=== PATIENT | male | born 1975 | race Caucasian/White ===

== ENCOUNTER 2022-12-29 09:11 | Outpatient (REF) | payer BC, SELFPAY ==
[2022-12-29 09:25] LABS: MANUAL DIFF FLAG NO
[2022-12-29 10:41] LABS: Basophils Absolute Auto 0.1 X10*3/uL (0.0-0.2); Basophils Percent Auto 1.5 % (0-2); Eosinophils Absolute Auto 0.3 X10*3/uL (0.0-0.4); Eosinophils Percent Auto 4.2 % (0-4); Hematocrit 45.9 % (42.0-52.0); Imm Gran Abs Auto 0.03 X10*3/uL (0.00-0.03); Imm Gran Pct Auto 0.4 % (0.0-0.4); Lymphocytes Absolute Auto 2.2 X10*3/uL (1.2-4.9); Lymphocytes Percent Auto 30.1 % (20-40); Mean Corpuscular HGB Conc 32.7 g/dl (31.0-36.0); Mean Corpuscular Hemoglobin 28.1 pg (27.0-33.0); Mean Platelet Volume 10.7 fL (9.4-12.4); Monocytes Absolute Auto 0.4 X10*3/uL (0.1-1.2); Monocytes Percent Auto 5.6 % (2-11); Neutrophils Absolute Auto 4.2 x10*3/uL (2.0-8.3); Neutrophils Percent Auto 58.2 % (45-73); Platelet Count 292 X10*3/uL (160-400); Red Blood Count 5.34 X10*6/uL (4.60-5.80); Red Cell Distribution Width 13.8 % (11.0-16.0); White Blood Count 7.1 X10*3/uL (4.8-10.8)
[2022-12-29 11:00] LABS: Appearance Urine Clear; Color Urine Yellow; Glucose Urine UA Negative (Negative); Leukocyte Esterase Urine Negative (Negative); Nitrite Urine Negative (Negative); PH 5.5 (5.0-9.0); Specific Gravity - Urine >= 1.030 (1.005-1.025); UMIC TRIGGER UACC YES; Urine Blood Moderate (2+) (Negative); Urine Ketones Trace mg/dL (Negative); Urine Protein 30 (1+) mg/dL (Neg-Trace)
[2022-12-29 11:03] LABS: Bacteria Urine None Seen (None Seen); Squamous Epithelial Cell Urine 0-2 /HPF (0-2); WBC Urine 0-5 /HPF (0-5)
[2022-12-29 11:17] LABS: Anion Gap 15 (12-20)
[2022-12-29 14:13] LABS: Alanine Aminotransferase 28 U/L (0-40); Albumin Level 4.1 g/dL (3.5-5.0); Alkaline Phosphatase 65 U/L (39-117); Aspartate Amino Transferase 21 U/L (5-37); Bilirubin Total 0.6 mg/dL (0.0-1.0); Blood Urea Nitrogen 15 mg/dL (9-16); Calcium 9.3 mg/dL (8.4-10.2); Carbon Dioxide 24 mmol/L (22-29); Chloride 109 mmol/L (96-108); Cholesterol 157 mg/dL; Estimated Glomerular Filt Rate > 60; Glucose Fasting 90 mg/dL (60-99); HDL Cholesterol 27 mg/dL; LDL Cholesterol Calculated 106 mg/dl; Sodium 144 mmol/L (135-145); TSH reflex Free T4 0.56 uIU/mL (0.32-4.0); Total Protein 7.5 g/dL (6.5-8.0); Triglycerides 124 mg/dL; Vitamin D 25-OH Total 29.1 ng/mL (>30)
[2022-12-29 20:06] LABS: Prostate Specific Antigen Scr 1.85 ng/mL (<0.05-4.0)
== END 2022-12-29 09:12 | disposition home or self-care (01) ==
LOC: HO.LAB 09:11
PROVIDERS: PCP Internal Medicine; Visit Provider Internal Medicine
DX: Z00.00 Encounter for general adult medical examination without abnormal findings (principal); E55.9 Vitamin D deficiency, unspecified; E78.00 Pure hypercholesterolemia, unspecified; G43.909 Migraine, unspecified, not intractable, without status migrainosus; E66.9 Obesity, unspecified; J30.9 Allergic rhinitis, unspecified; R30.0 Dysuria; Z12.5 Encounter for screening for malignant neoplasm of prostate
CPT/HCPCS: 36415; 80053; 80061; 81001; 81003; 82306; 84153; 84443; 85025

== ENCOUNTER 2023-03-20 09:53 | Outpatient (AMB) | payer BC, SELFPAY ==
[2023-03-20 10:11] VITALS: BP 146/82; PULSE 76; BMI 37.7
--- NOTE | 2023-03-20 10:11 | MHC.OFFVIS ---
Intake Vital Signs 03/20/23 10:11 Height 5 ft 10 in Weight 263 lb BMI 37.7 BP 146/82 H Blood Pressure Location Lt brachial Position Sitting Pulse 76 Intake Visit Reasons: Colonoscopy Screening Intake Note: Patient new consult for 1st pre colonoscopy screening. Patient denies any GI issues. 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 Accompanied by: Self / Same As Patient Allergies Penicillins Allergy (Severe, Verified 03/20/23 10:11) Anaphylaxis amoxicillin [AMOXICILLIN] Allergy (Mild, Verified 03/20/23 10:11) RASH Iodinated Contrast Media [IV CONTRAST] Allergy (Unknown, Verified 03/20/23 10:11) UNKNOWN Medication List - Last Reconciled 03/20/23 by Marlene Silva PA-C loratadine 10 mg PO DAILY PRN HPI HPI Comments History of Present Illness Details A 47 y/o male referred for index screening colonoscopy- no GI concerns SOB- with covid- with seem to linger, however is improved Appetite very good Normal bowel pattern No resp/ cardiac issues No nausea, vomiting, hematemesis, hematochezia fever chills PFSH Medical History Allergic rhinitis Migraine Surgical History S/p bilateral myringotomy with tube placement Family History Maternal Grandmother Diabetes Mother Hypertension Social History (Updated 03/20/23 @ 13:12 by Marlene Silva PA-C) Household Members Other:: [facility] Housing: House Patient Tobacco Use Status: Former Tobacco user Quit Date: 2015 e-Cigarette/Vaping Use: Never Used Second Hand Smoke Exposure: No service: No Current occupational status: employed Current occupational exposures/hazards: No Cognitive needs: No Hearing needs: No Vision needs: No Review of Systems Const All systems reviewed & are unremarkable except as noted in HPI and below Card Denies chest pain and Denies dyspnea Resp Denies dyspnea GI Denies abdominal pain, Denies change in bowel habits, Denies heartburn, Denies diarrhea, Denies nausea and Denies vomiting Physical Exam Vital Signs: Last Vital Signs Pulse 76 03/20/23 10:11 BP 146/82 H 03/20/23 10:11 BMI result Body Mass Index 37.7 Const General: cooperative, healthy appearing, comfortable and no acute distress Orientation/consciousness: patient oriented x3 Limitations: no limitations Eyes Sclerae: sclerae normal Resp Effort & Inspection: normal respiratory effort and able to speak in complete sentences Auscultation: clear to auscultation bilaterally, no rales, no rhonchi and no wheezes Cardio Rate: regular rate Rhythm: regular rhythm Heart sounds: S1 normal heart sound present and S2 normal heart sound present GI Palpation (GI): Soft to palpation and nontender Auscultation: normal bowel sounds Skin General skin exam: no rashes or lesions noted Neuro General: patient oriented x3 Extrem General: Yes full ROM Psych Appearance: grossly normal and well kempt Mental Status: mental status grossly normal Speech and movement: Normal speech and movement present and Clear speech present Affect: normal affect Attitude: cooperative Thought process: Normal thought process present Thought content: Normal thought content present Insight: Good insight present (Psych) Judgement: Good judgement present (Psych) Assessment & Plan Assessment & Plan (1) Colon cancer screening: Code(s): Z12.11 - Encounter for screening for malignant neoplasm of colon Plan: Index screening colonoscopy MiraLax Gatorade prep Discussed procedure, rare risks need for escorted Plan Index screening colonoscopy MiraLax Gatorade prep Orders: Orders Colonoscopy - GI Use Only Today Z12.11 - Encounter for screening for malignant neoplasm of colon Medications: New bisacodyl (Dulcolax (bisacodyl)) Day before procedure, prep day Take 4 tablets by mouth upon awakening followed by large glass of water 20 mg (4 x 5 mg) PO ONCE 4 tabs 0RF colonoscopy prep 1 day Z12.11 - Encounter for screening for malignant neoplasm of colon polyethylene glycol 3350 (Miralax) Take as directed by mouth the day before your procedure. 238 grams PO ONCE PRN 238 grams 0RF laxative effect 1 day Patient Instructions: A 47-year-old male referred index screening colonoscopy no GI complaints, no family history GI cancer index screening colonoscopy MG prep- info given Opportunity for questions answered to satisfaction Encouraged to call questions or concerns Coding Level of Care Code New Pt Level 3 (38731) Diagnoses Colon cancer screening Z12.11 Time Spent (min) 30
== END 2023-03-20 10:31 | disposition home or self-care (01) ==
PROVIDERS: PCP Internal Medicine; Visit Provider Physician Assistant
DX: Z12.11 Encounter for screening for malignant neoplasm of colon (principal); Z01.818 Encounter for other preprocedural examination
CPT/HCPCS: S0285

== ENCOUNTER → 2023-03-20 09:53 | Outpatient (BNVA) | payer BC, SELFPAY | PROVIDERS: PCP Internal Medicine; Visit Provider Physician Assistant ==

== ENCOUNTER 2023-05-07 12:48 | Outpatient (AMB) | payer BC, SELFPAY ==
[2023-05-07 13:01] VITALS: BP 138/86; PULSE 86; O2SAT 98; BMI 38.2
--- NOTE | 2023-05-07 13:01 | A.OFFPC_ITS ---
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 Accompanied by: Self / Same As Patient Allergies Penicillins Allergy (Severe, Verified 05/07/23 13:36) Anaphylaxis amoxicillin [AMOXICILLIN] Allergy (Mild, Verified 05/07/23 13:36) RASH Iodinated Contrast Media [IV CONTRAST] Allergy (Unknown, Verified 05/07/23 13:36) UNKNOWN Medication List - Last Reconciled 05/07/23 by Anibal Santana MD bisacodyl (Dulcolax (bisacodyl)) 20 mg (4 x 5 mg) PO ONCE 1 day loratadine 10 mg PO DAILY PRN polyethylene glycol 3350 (Miralax) 238 grams PO ONCE PRN 1 day Tobacco use date assessed: 05/07/23 Dental Screening Dental Screen Date: 05/07/23 Did you have a dental visit in the last 12 months?: No Did you have a dental problem in the last 6 months where you did not have access to dental care?: No Was dental information given to patient?: No HPI F/U On Rash On Face HPI Details Patient comes in today complaining of breaking out in recurrent pruritic scaling rash over his scalp, behind his eyes and more recently over his lower back at the intergluteal cleft Notes that the itching seems to get worse at nighttime He denies any history of recent travel and has no new pets at home He also denies eating or drinking anything unusual lately and has not changed any soap, detergent or skin care products recently States that he has tried using some OTC treatments like Selsun Blue and a few other options recently with no relief He denies any fever or recent cough/cold symptoms but has been experiencing on and off headaches lately Denies any chest pains, no SOB No nausea/vomiting, no abdominal pain Denies any acute urinary symptoms Would also like to know how his labs done a few months ago came out [facility] Medical History (Updated 05/07/23 @ 14:03 by Anibal Santana MD) Vitamin D deficiency Allergic rhinitis Migraine Surgical History S/p bilateral myringotomy with tube placement Family History Maternal Grandmother Diabetes Mother Hypertension Social History Household Members Other:: fiancee Housing: House Patient Tobacco Use Status: Former Tobacco user Quit Date: 2015 e-Cigarette/Vaping Use: Never Used Second Hand Smoke Exposure: No service: No Current occupational status: employed Current occupational exposures/hazards: No Cognitive needs: No Hearing needs: No Vision needs: No Questionnaire PHQ-9 Over the last 2 weeks, how often have you been bothered by any of the following problems? 1. Little interest or pleasure in doing things: not at all 2. Feeling down, depressed, or hopeless: not at all 3. Trouble falling or staying asleep, or sleeping too much: not at all 4. Feeling tired or having little energy: not at all 5. Poor appetite or overeating: not at all 6. Feeling bad about yourself - or that you are a failure or have let yourself or your family down: not at all 7. Trouble concentrating on things, such as reading the newspaper or watching television: not at all 8. Moving or speaking so slowly that other people could have noticed. Or the opposite - being so fidgety or restless that you have been moving around a lot more than usual: not at all 9. Thoughts that you would be better off or of hurting yourself in some way: not at all Total score: 0 Depression Screening Interpretation: Negative Depression Screening Done: Yes 37428 - PHQ-9 Billing: Yes Source: Developed by Drs. Alfonso Frias, Delmy Jean, Socrates Mclean and colleagues, with an educational terence from [employer]. Thrive Questionnaire Date Thrive assessed: 05/07/23 I am a: Patient What is your living situation today?: I have a steady place to live Within the past 12 months, did the food you bought not last and you didn't have the money to get more?: Never true Within the past 12 months, did you worry whether your food would run out before you got money to buy more?: Never true Do you have trouble paying for medicines?: No Do you have trouble getting transportation to medical appointments?: No Do you have trouble paying your heating and electricity bill?: No Do you have trouble taking care of your child, family member or friend?: No Do you have trouble with day-to-day activities such as bathing, preparing meals, shopping, managing finances, etc.?: No Are you currently unemployed and looking for a job?: No Are you interested in more education?: No Please select the resources that you would like help with: None Currently or been in a relationship where the following occur: no concerns reported AUDIT C Alcohol Use Questionnaire (AUDIT-C) 1. How often do you have a drink containing alcohol?: Monthly or less 3. How often do you have six or more drinks on one occasion?: Never Total Score: 1 Score Reviewed/Action Taken: Yes HUMBLE-7 AMB Questionnaire HUMBLE-7 Date HUMBLE - 7 assessed: 05/07/23 Feeling nervous, anxious, or on edge: 0 = Not at all Not being able to stop or control worryin = Not at all Worrying too much about different things: 0 = Not at all Trouble relaxin = Not at all Being so restless that it is hard to sit still: 0 = Not at all Becoming easily annoyed or irritable: 0 = Not at all Feeling afraid as if something awful might happen: 0 = Not at all Total HUMBLE-7 score (0-4 normal; 5-9 mild; 10-14 moderate; 15-21 severe): 0 Source: Developed by Drs. Alfonso Frias, Delmy Jean, Socrates Mclean and colleagues, with an educational terence from [employer]. Review of Systems Const Denies chills, Denies fatigue, Denies fever(s) and Reports headache(s) (on and off lately - (+) Hx of migraine) ENT Denies dysphagia, Denies dizziness, Denies otalgia, Reports headache(s) (on and off lately - (+) Hx of migraine), Denies neck pain, Denies odynophagia and Denies sore throat Card Denies chest pain, Denies palpitations and Denies dyspnea Resp Denies cough and Denies dyspnea GI Denies abdominal pain, Denies constipation, Denies dysphagia, Denies heartburn, Denies diarrhea, Denies nausea, Denies odynophagia and Denies vomiting Denies hematuria, Denies dysuria, Denies nocturia and Denies urinary frequency Musc Denies back pain and Denies neck pain Skin/Breast Reports rash ((+) recurrent pruritic rash - see HPI) Neuro Denies dizziness and Reports headache(s) (on and off lately - (+) Hx of migraine) Endo Denies fatigue and Denies palpitations Physical exam (Primary Care) Vital Signs: Last Vital Signs Pulse 86 05/07/23 13:01 BP 138/86 05/07/23 13:01 Pulse Ox 98 05/07/23 13:01 Oxygen Delivery Method Room Air 05/07/23 13:01 BMI result Body Mass Index 38.2 Tobacco/Smoking Status: Tobacco use Status Tobacco use date assessed 05/07/23 05/07/23 13:06 Patient Tobacco Use Status Former Tobacco user 05/07/23 13:06 e-Cigarette/Vaping Use Never Used 05/07/23 13:06 PHQ-9: PHQ-9 Score PHQ-9: Total score 0 05/07/23 13:06 Depression Screening Interpretation: Negative Thrive Assessment: Date of Thrive Assessment Date Thrive assessed 05/07/23 05/07/23 13:06 Currently or been in a relationship where the following occur: no concerns reported Const General: no acute distress and alert Neck Neck: Yes no lymphadenopathy and Yes supple Resp Auscultation: clear to auscultation bilaterally, no rales and no wheezes Cardio Rate: regular rate Rhythm: regular rhythm Heart sounds: no murmurs GI Palpation (GI): Soft to palpation and nontender Auscultation: normal bowel sounds General: Yes no CVA tenderness Back/Spine/Pelvis Back: no CVA tenderness Skin Other: (+) scattered scaling pruritic erythematous rash over the scalp, behind the ears and at the opening of the right ear canal, as well as at the intergluteal cleft Extrem General: Yes no clubbing, cyanosis or edema Results Reviewed Results Reviewed: Laboratory Tests 12/29/22 09:25 WBC 7.1 Hgb 15.0 Hct 45.9 Plt Count 292 Sodium 144 Potassium 4.0 Creatinine 1.07 Estimated GFR > 60 Fasting Glucose 90 Calcium 9.3 AST 21 ALT 28 Triglycerides 124 Cholesterol 157 LDL Cholesterol, Calc 106 HDL Cholesterol 27 PSA Screen 1.85 25-OH Vitamin D Total 29.1 TSH 0.56 Ur Specific [place] >= 1.030 H Urine Protein 30 (1+) H Urine Glucose (UA) Negative Urine Blood Moderate (2+) H Urine Nitrite Negative Ur Leukocyte Esterase Negative Hyaline Casts 3-5 Assessment and Plan Assessment & Plan (1) Migraine: Code(s): G43.909 - Migraine, unspecified, not intractable, without status migrainosus Qualifiers: Migraine type: unspecified Status migrainosus presence: without status migrainosus Intractability: not intractable Qualified Code(s): G43.909 - Migraine, unspecified, not intractable, without status migrainosus Plan: Reinforced avoidance of migraine triggers Patient states that he just takes some OTC meds as needed when his headaches occur, more often in the spring and fall as allergies tend to trigger his headaches (2) Pruritic rash: Code(s): L28.2 - Other prurigo Plan: Unknown etiology Will start him for now on Triamcinolone 0.5% cream BID PRN Will refer him to dermatology for further evaluation and management (3) Benign microscopic hematuria: Code(s): R31.1 - Benign essential microscopic hematuria Plan: Results of his labs done back in December 2022 reviewed and discussed with patient - advised that his labs were mostly within normal limits except for (+) hematuria, which was also seen on urinalysis he did back in 2019 Patient states that he was never worked up for this in the past as far as he can remember because he does not recall that anyone ever mentioned to him about having blood in his urine An abdominal and pelvic CT done back in 2019 revealed only the presence of a tiny exophytic cyst over the right kidney Will send him for urine cytology and for renal and bladder US SANTIAGO for further evaluation (4) Allergic rhinitis: Code(s): J30.9 - Allergic rhinitis, unspecified Qualifiers: Allergic rhinitis trigger: unspecified Allergic rhinitis seasonality: unspecified Qualified Code(s): J30.9 - Allergic rhinitis, unspecified Plan: Continue OTC Loratadine 10 mg QD PRN (5) Vitamin D deficiency: Code(s): E55.9 - Vitamin D deficiency, unspecified Plan: Advised that his Vitamin D level was slightly low on his recent labs Have recommended that he start taking some OTC Vitamin D3 1000 units QD (6) Obesity (BMI 30-39.9): Code(s): E66.9 - Obesity, unspecified Plan: Reinforced diet/exercise as tolerated/lose weight Plan Follow up in 4 months Orders: Orders US bladder Today R31.9 - Hematuria, unspecified Urine Cytology Today R31.9 - Hematuria, unspecified US renal BI Today R31.9 - Hematuria, unspecified Referrals Dermatology Referral L28.2 - Other prurigo Medications: New triamcinolone acetonide 0.5% 1 appl topical BID PRN 30 grams 2RF rash Coding Level of Care Code Est Pt Level 4 (74353) Diagnoses Migraine without status migrainosus, not intractable, unspecified migraine type G43.909 Migraine type: unspecified Status migrainosus presence: without status migrainosus Intractability: not intractable Pruritic rash L28.2 Benign microscopic hematuria R31.1 Allergic rhinitis, unspecified seasonality, unspecified trigger J30.9 Allergic rhinitis trigger: unspecified Allergic rhinitis seasonality: unspecified Vitamin D deficiency E55.9 Obesity (BMI 30-39.9) E66.9
== END 2023-05-07 13:53 | disposition home or self-care (01) ==
PROVIDERS: PCP Internal Medicine; Visit Provider Internal Medicine
DX: G43.909 Migraine, unspecified, not intractable, without status migrainosus (principal); L28.2 Other prurigo; E66.9 Obesity, unspecified; Z68.38 Body mass index [BMI] 38.0-38.9, adult; R31.1 Benign essential microscopic hematuria; J30.9 Allergic rhinitis, unspecified; E55.9 Vitamin D deficiency, unspecified
CPT/HCPCS: 99214

== ENCOUNTER 2023-06-01 12:39 | Outpatient (REF) | payer BC, SELFPAY | END 2023-06-01 12:40 | disposition home or self-care (01) | LOC: HO.US 12:39 | PROVIDERS: PCP Internal Medicine; Visit Provider Internal Medicine | DX: R31.9 Hematuria, unspecified (principal) | CPT/HCPCS: 76775 ==

== ENCOUNTER 2023-09-12 12:32 | Outpatient (AMB) | payer BC, SELFPAY ==
[2023-09-12 12:34] VITALS: BP 144/98; PULSE 59; O2SAT 96; BMI 35.7
--- NOTE | 2023-09-12 12:34 | A.OFFPC_ITS ---
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 Allergies Penicillins Allergy (Severe, Verified 09/12/23 12:52) Anaphylaxis amoxicillin [AMOXICILLIN] Allergy (Mild, Verified 09/12/23 12:52) RASH Iodinated Contrast Media [IV CONTRAST] Allergy (Unknown, Verified 09/12/23 12:52) UNKNOWN Medication List - Last Reconciled 09/12/23 by Anibal Santana MD loratadine 10 mg PO DAILY PRN triamcinolone acetonide 0.5% 1 appl topical BID PRN Tobacco use date assessed: 09/12/23 Dental Screening Dental Screen Date: 09/12/23 HPI rash, hematuria HPI Details Patient comes in today for his follow up visit States that he is still breaking out in an itchy rash, especially at his hairline and on the scalp as well as behind his ears States that the triamcinolone cream that we prescribed for him a few months ago helped only minimally and temporarily He was referred as well to dermatology at his last visit but states that he has not been contacted by them at all so he still has not seen any specialist for his rash States that he has seen some blood in his urine occasionally lately but his urine is mostly dark-colored; he denies any flank pains or pain / discomfort when urinating Had his renal US done a few months ago and would like to know if his US came out normal Adds that he still has a hard time hearing out of both of his ears Recalls that this seem to have started a few months ago (late last year) when he tested positive for COVID - states that his hearing has never recovered; he denies any ear pain He also has been experiencing increased nasal / sinus congestion lately - thinks his symptoms are due to pollen / spring allergies and he has been taking some OTC Claritin lately with some relief He denies any fever or sore throat; denies any dizziness but reports that he has been experiencing recurrent headaches lately Denies any chest pains, no SOB No nausea/vomiting, no abdominal pain No change in bowel habits noted He was seen by GI a few months ago and is now scheduled for his colonoscopy in October 2023 [facility] Medical History (Updated 09/12/23 @ 13:41 by Anibal Santana MD) Essential hypertension Vitamin D deficiency Allergic rhinitis Migraine Surgical History S/p bilateral myringotomy with tube placement Family History Maternal Grandmother Diabetes Mother Hypertension Social History Household Members Other:: fiancee Housing: House Patient Tobacco Use Status: Former Tobacco user Quit Date: 2015 e-Cigarette/Vaping Use: Never Used Second Hand Smoke Exposure: No service: No Current occupational status: employed Current occupational exposures/hazards: No Cognitive needs: No Hearing needs: No Vision needs: No Questionnaire PHQ-9 Over the last 2 weeks, how often have you been bothered by any of the following problems? 1. Little interest or pleasure in doing things: not at all 2. Feeling down, depressed, or hopeless: not at all 3. Trouble falling or staying asleep, or sleeping too much: not at all 4. Feeling tired or having little energy: not at all 5. Poor appetite or overeating: not at all 6. Feeling bad about yourself - or that you are a failure or have let yourself or your family down: not at all 7. Trouble concentrating on things, such as reading the newspaper or watching television: not at all 8. Moving or speaking so slowly that other people could have noticed. Or the opposite - being so fidgety or restless that you have been moving around a lot more than usual: not at all 9. Thoughts that you would be better off or of hurting yourself in some way: not at all Total score: 0 Depression Screening Interpretation: Negative Depression Screening Done: Yes [id number] - PHQ-9 Billing: Yes Source: Developed by Drs. Alfonso Frias, Delmy Jean, Socrates Mclean and colleagues, with an educational terence from [employer]. Thrive Questionnaire Date Thrive assessed: 09/12/23 I am a: Patient What is your living situation today?: I have a steady place to live Within the past 12 months, did the food you bought not last and you didn't have the money to get more?: Never true Within the past 12 months, did you worry whether your food would run out before you got money to buy more?: Never true Do you have trouble paying for medicines?: No Do you have trouble getting transportation to medical appointments?: No Do you have trouble paying your heating and electricity bill?: No Do you have trouble taking care of your child, family member or friend?: No Do you have trouble with day-to-day activities such as bathing, preparing meals, shopping, managing finances, etc.?: No Are you currently unemployed and looking for a job?: No Are you interested in more education?: No Please select the resources that you would like help with: None Currently or been in a relationship where the following occur: no concerns reported THRIVE Score: 0 AUDIT C Alcohol Use Questionnaire (AUDIT-C) 1. How often do you have a drink containing alcohol?: Monthly or less 3. How often do you have six or more drinks on one occasion?: Never Total Score: 1 Score Reviewed/Action Taken: Yes HUMBLE-7 AMB Questionnaire HUMBLE-7 Date HUMBLE - 7 assessed: 05/07/23 Source: Developed by Drs. Alfonso Frias, Delmy Jean, Socrates Mclean and colleagues, with an educational terence from [employer]. Review of Systems Const Denies fatigue, Denies fever(s) and Reports headache(s) (on and off ) ENT Denies dysphagia, Denies dizziness, Denies otalgia, Reports headache(s) (on and off ), Reports hearing loss (both ears feel congested all the time), Reports nasal congestion, Denies neck pain, Denies odynophagia, Denies sinus pain and Denies sore throat Card Denies chest pain, Denies palpitations and Denies dyspnea Resp Denies chest congestion, Denies cough and Denies dyspnea GI Denies abdominal pain, Denies constipation, Denies dysphagia, Denies heartburn, Denies diarrhea, Denies nausea, Denies odynophagia and Denies vomiting Reports hematuria (occasionally), Denies dysuria, Denies nocturia and Denies urinary frequency Musc Denies back pain and Denies neck pain Skin/Breast Reports rash (recurrent pruritic rash especially over scalp (at hairline) & behind ears) Neuro Denies dizziness and Reports headache(s) (on and off ) Endo Denies fatigue and Denies palpitations Physical exam (Primary Care) Vital Signs: Last Vital Signs Pulse 59 09/12/23 12:34 BP 144/98 H 09/12/23 12:34 Pulse Ox 96 09/12/23 12:34 Oxygen Delivery Method Room Air 09/12/23 12:34 BMI result Body Mass Index 35.7 Tobacco/Smoking Status: Tobacco use Status Tobacco use date assessed 09/12/23 09/12/23 12:35 Patient Tobacco Use Status Former Tobacco user 09/12/23 12:35 e-Cigarette/Vaping Use Never Used 09/12/23 12:35 Depression Screening Interpretation: Negative Thrive Assessment: Date of Thrive Assessment Date Thrive assessed 05/07/23 09/12/23 12:35 Currently or been in a relationship where the following occur: no concerns reported Const General: no acute distress and alert HENMT Ears: EAC's normal and TM abnormal wth effusion purulent bilateral General nose exam: Abnormal mucous membranes and turbinates present boggy and erythematous Face and sinus: No sinus tenderness Throat: Yes posterior oropharynx normal and Yes tonsils normal Neck Neck: Yes no lymphadenopathy and Yes supple Thyroid: Thyroid normal Resp Auscultation: clear to auscultation bilaterally, no rales and no wheezes Cardio Rate: regular rate Rhythm: regular rhythm Heart sounds: no murmurs GI Palpation (GI): Soft to palpation and nontender Auscultation: normal bowel sounds General: Yes no CVA tenderness Back/Spine/Pelvis Back: no CVA tenderness Thoracic/Lumbar Spine: No lumbar spinal tenderness Skin Other: (+) scattered scaling pruritic erythematous rash over the scalp, behind the ears and at the opening of the right ear canal, as well as at the intergluteal cleft Extrem General: Yes no clubbing, cyanosis or edema Assessment and Plan Assessment & Plan (1) Pruritic rash: Code(s): L28.2 - Other prurigo Plan: Suspect psoriasis as the cause of his recurrent scaling rash He was referred to [facility] at his last visit but states that he has yet to be contacted to schedule an appointment Will have him remind the office staff when he checks out to process his referral again Continue using Triamcinolone 0.5% cream BID PRN in the meantime (2) Hematuria: Code(s): R31.9 - Hematuria, unspecified Qualifiers: Hematuria type: asymptomatic microscopic Qualified Code(s): R31.21 - Asymptomatic microscopic hematuria Plan: Patient is advised that his labs done back in December 2022 and his renal US done in May 2023 all came out with normal / unrevealing results Abdominal and pelvic CT done back in 2019 revealed only the presence of a tiny exophytic cyst over the right kidney Will send him for US of the bladder this time for further evaluation and if his bladder US also comes back normal, will need to refer him to nephrology for further evaluation (3) Hearing impairment: Code(s): H91.90 - Unspecified hearing loss, unspecified ear Qualifiers: Hearing loss type: unspecified Laterality: bilateral Qualified Code(s): H91.93 - Unspecified hearing loss, bilateral Plan: He is advised that he appears to have a chronic effusion behind both of his tympanic membranes - unclear as to etiology but I suspect that his allergies may also be contributing to this Have advised him to continue on OTC Loratadine 10 mg QD and will start him additionally on Fluticasone 50 mcg nasal spray 2 sprays into each nostril QD PRN Will refer him to ENT for further evaluation and management (4) Essential hypertension: Code(s): I10 - Essential (primary) hypertension Plan: He is advised that his blood pressure currently remains high and that these could be contributing to his recurrent headaches as well Discussed low sodium diet Will start him on Lisinopril 2.5 mg QD Patient is instructed to monitor his blood pressure regularly (5) Migraine: Code(s): G43.909 - Migraine, unspecified, not intractable, without status migrainosus Qualifiers: Migraine type: unspecified Status migrainosus presence: without status migrainosus Intractability: not intractable Qualified Code(s): G43.909 - Migraine, unspecified, not intractable, without status migrainosus Plan: Reinforced avoidance of migraine triggers Patient states that he just takes some OTC meds as needed when his headaches occur, more often in the spring and fall as allergies tend to trigger his headaches (6) Allergic rhinitis: Code(s): J30.9 - Allergic rhinitis, unspecified Qualifiers: Allergic rhinitis trigger: unspecified Allergic rhinitis seasonality: unspecified Qualified Code(s): J30.9 - Allergic rhinitis, unspecified Plan: Continue OTC Loratadine 10 mg QD PRN He will also be started on Fluticasone 50 mcg nasal spray 2 sprays into each nostril QD AL (7) Obesity (BMI 30-39.9): Code(s): E66.9 - Obesity, unspecified Plan: Reinforced diet/exercise as tolerated/lose weight Plan To return as scheduled in early November 2023 for his annual physical examination Orders: Orders Complete Blood Count Auto Diff 11/17/23 D64.9 - Anemia, unspecified, Z00.00 - Encounter for general adult medical examination without abnormal findings Comprehensive [place]. Panel Fast 11/17/23 E78.00 - Pure hypercholesterolemia, unspecified, Z00.00 - Encounter for general adult medical examination without abnormal findings UA CC w/rflx Micro + Cult 11/17/23 R30.0 - Dysuria, Z00.00 - Encounter for general adult medical examination without abnormal findings US bladder Today R31.9 - Hematuria, unspecified Lipid Panel 11/17/23 E78.00 - Pure hypercholesterolemia, unspecified, Z00.00 - Encounter for general adult medical examination without abnormal findings TSH reflex Free T4 11/17/23 E78.00 - Pure hypercholesterolemia, unspecified, Z00.00 - Encounter for general adult medical examination without abnormal findings Prostate Specific Antigen 11/17/23 N40.0 - Benign prostatic hyperplasia without lower urinary tract symptoms, Z00.00 - Encounter for general adult medical examination without abnormal findings Vitamin D 25-OH Total 11/17/23 E55.9 - Vitamin D deficiency, unspecified, Z00.00 - Encounter for general adult medical examination without abnormal findings Urine Cytology 11/17/23 R31.1 - Benign essential microscopic hematuria, Z00.00 - Encounter for general adult medical examination without abnormal findings Referrals Ear/Nose/Throat Referral H65.499 - Other chronic nonsuppurative otitis media, unspecified ear, H91.90 - Unspecified hearing loss, unspecified ear Medications: New fluticasone propionate 50 mcg/actuation administer into each nostril 2 sprays intranasal DAILY 30 days PRN 16 grams 5RF allergy symptoms lisinopril 2.5 mg PO DAILY 30 days 30 tabs 2RF Coding Level of Care Code Est Pt Level 4 (78941) Diagnoses Pruritic rash L28.2 Asymptomatic microscopic hematuria R31.21 Hematuria type: asymptomatic microscopic Bilateral hearing loss, unspecified hearing loss type H91.93 Hearing loss type: unspecified Laterality: bilateral Essential hypertension I10 Migraine without status migrainosus, not intractable, unspecified migraine type G43.909 Migraine type: unspecified Status migrainosus presence: without status migrainosus Intractability: not intractable Allergic rhinitis, unspecified seasonality, unspecified trigger J30.9 Allergic rhinitis trigger: unspecified Allergic rhinitis seasonality: unspecified Obesity (BMI 30-39.9) E66.9
== END 2023-09-12 13:06 | disposition home or self-care (01) ==
PROVIDERS: PCP Internal Medicine; Visit Provider Internal Medicine
DX: H91.93 Unspecified hearing loss, bilateral (principal); E66.9 Obesity, unspecified; Z68.35 Body mass index [BMI] 35.0-35.9, adult; L28.2 Other prurigo; R31.21 Asymptomatic microscopic hematuria; I10 Essential (primary) hypertension; G43.909 Migraine, unspecified, not intractable, without status migrainosus; J30.9 Allergic rhinitis, unspecified
CPT/HCPCS: 99214

== ENCOUNTER 2023-11-13 07:58 | Day surgery (SDC) | payer BC, SELFPAY ==
[2023-11-09 12:59] VITALS: BMI 37.7
--- NOTE | 2023-11-12 10:41 | HO.ANESPROP2 ---
Documented by User: Anuradha Bocanegra NP 11/12/23 10:42 HPI - Anesthesia Eval Consult details Narrative: 48yo M for Colonoscopy PMFSH Active Problems Active Problems: All Active Problems Essential hypertension (Acute) Chronic middle ear effusion (Acute) Hearing impairment (Acute) Vitamin D deficiency (Acute) Benign microscopic hematuria (Acute) Hematuria (Acute) Pruritic rash (Acute) Colon cancer screening (Acute) Allergic rhinitis (Acute) Annual physical exam (Acute) Migraine (Acute) Past Medical History Medical History (Updated 09/12/23 @ 13:41 by Anibal Santana MD) Essential hypertension Vitamin D deficiency Allergic rhinitis Migraine Family History Family History Maternal Grandmother Diabetes Mother Hypertension Surgical History Surgical History S/p bilateral myringotomy with tube placement Social History Social History Household Members Other:: fiancee Housing: House Patient Tobacco Use Status: Former Tobacco user e-Cigarette/Vaping Use: Never Used Second Hand Smoke Exposure: No Advance Directives: No Advance Directives Information Provided: Yes service: No Current occupational status: employed Current occupational exposures/hazards: No Cognitive needs: No Hearing needs: No Vision needs: No Meds Allergies Allergy/AdvReac Type Severity Reaction Status Date / Time Penicillins Allergy Severe Anaphylaxis Verified 11/13/23 08:50 amoxicillin [AMOXICILLIN] Allergy Mild RASH Verified 11/13/23 08:50 Iodinated Contrast Media Allergy Unknown UNKNOWN Verified 11/13/23 08:50 [IV CONTRAST] Home Medications ?Medication ?Instructions ?Recorded ?Confirmed ?Last Taken ?Type loratadine 10 mg tablet 10 mg PO DAILY PRN allergy symptoms 11/23/22 11/09/23 Unknown History Exam Height,Weight and Vital Signs: Height 5 ft 10 in Weight 119.295 kg Assessment and Plan Assessment Anesthesia Assessment: Chart Reviewed Documented by User: Andrés Chavez MD 11/13/23 08:51 PMFSH Past Medical History Medical History (Updated 09/12/23 @ 13:41 by Anibal Santana MD) Essential hypertension Vitamin D deficiency Allergic rhinitis Migraine Family History Family History Maternal Grandmother Diabetes Mother Hypertension Family history of problems with anesthesia: No Surgical History Surgical History S/p bilateral myringotomy with tube placement History of Problems with Anesthesia: No Social History Social History Household Members Other:: fiancee Housing: House Patient Tobacco Use Status: Former Tobacco user e-Cigarette/Vaping Use: Never Used Second Hand Smoke Exposure: No Advance Directives: No Advance Directives Information Provided: Yes service: No Current occupational status: employed Current occupational exposures/hazards: No Cognitive needs: No Hearing needs: No Vision needs: No Meds Allergies Allergy/AdvReac Type Severity Reaction Status Date / Time Penicillins Allergy Severe Anaphylaxis Verified 11/13/23 08:50 amoxicillin [AMOXICILLIN] Allergy Mild RASH Verified 11/13/23 08:50 Iodinated Contrast Media Allergy Unknown UNKNOWN Verified 11/13/23 08:50 [IV CONTRAST] Home Medications ?Medication ?Instructions ?Recorded ?Confirmed ?Last Taken ?Type loratadine 10 mg tablet 10 mg PO DAILY PRN allergy symptoms 11/23/22 11/09/23 Unknown History Exam Airway Mallampati Class: II TM Dist: >3cm Neck ROM: Full Denture: Upper and Lower Heart: ok Lungs: ok Assessment and Plan Assessment Anesthesia Assessment: Anesthesia Plan Discussed Final Anesthetic Review Family History of Problems with Anesthesia: No History of Problems with Anesthesia: No NPO: Yes ASA Class: II Final Preanesthetic Review: No Changes in Pt Med Stat, Meds/Allgs Chart Reviewed, Consent Obtained/Reviewed and Anes Risks/Benef Reviewed Patient Risk: Low Procedure Risk: Low Anesthetic Plan Anesthetic Plan: MAC: and Agree w/ Assess. and Plan Disposition: Standard PACU
--- NOTE | 2023-11-13 08:29 | MHC.SHP ---
Pre-Procedural Eval Section A - 24 Hr Update-Section A only Date of Service: 11/13/23 The patient is an INPATIENT: No The patient has been examined within 24 hours of the surgical procedure. The History & Physical has been completed within 30 days and I have reviewed it.: No Section B - Complete if H&P > 30 days Chief Complaint: Encounter for screening for malignant neoplasm of Relevant Family History (Specify if Yes): No Relevant Social History: Tobacco Use Present Medications: see Short Stay Collaborative assessment Medical History: Significant History (Allergic rhinitis Migraine) History of Previous Operations: Relevant previous surgery/procedure and date(s) (S/p bilateral myringotomy with tube placement) Allergies: Allergies Allergy/AdvReac Type Severity Reaction Status Date / Time Penicillins Allergy Severe Anaphylaxis Verified 09/12/23 12:52 amoxicillin [AMOXICILLIN] Allergy Mild RASH Verified 09/12/23 12:52 Iodinated Contrast Media Allergy Unknown UNKNOWN Verified 09/12/23 12:52 [IV CONTRAST] Review of Systems Sugical H&P ROS: Negative: Constitution, Cardiovascular, Respiratory and Gastrointestinal Exam Surgical H&P Exam: Normal: Heart, Normal: Lungs, Normal: Extremities and Normal: Abdomen Plan Diagnosis/Plan: Unchanged I have reviewed the history and physical and performed a pertinent physical examination on my patient. No changes have occurred unless specified. Time Spent With Patient Time: Total time managing care of this patient today ____ minutes.
[2023-11-13 08:52] VITALS: BP 144/113; PULSE 100; RESP 16; TEMP 37; O2SAT 97; BMI 35.0
[2023-11-13] MEDS: Lactated Ringers 1,000 ML 100 ML IVCONT (09:05)
--- NOTE | 2023-11-13 09:58 | HO.OPN-COLON ---
Colonoscopy Operative Note Operative Note Date of Service: 11/13/23 Narrative: COLONOSCOPY TILL CECUM WITH SNARE POLYPECTOMY Pre-op diagnosis: Colon cancer screening, 1st colonoscopy. Post-op diagnosis:? Colon polyps, Diverticulosis, hemorrhoids Endoscopist:? Lucio Lagos MD Anesthesia:?MAC Consent: Indications for the procedure and potential complications of bleeding, perforation, reaction to medications and missed diagnosis were discussed with the patient and informed consent was obtained. Instrument: Olympus CF H 190 L variable stiffness adult colonoscope Monitoring: Vital signs and clinical assessment, intermittent blood pressure monitoring, continuous EKG monitoring, Pulse oximetry and Carbon Dioxide monitoring were done throughout the procedure. Please see anesthesia flowsheet. Colon withdrawl time was 20 minutes. Procedure: The patient was placed in the left lateral decubitis position and pre-procedure medications were administered. After a digital rectal examination of the ano-rectum, the video colonoscope was inserted into the rectum and advanced through the colon to the cecum. The colonoscope was slowly withdrawn in a retrograde panoramic fashion and the colon mucosa was carefully examined including a retroflexed view of the rectum. Findings and interventions are described below. Procedure Difficulty: without difficulty Findings: Terminal Ileum: Not evaluated Cecum: Normal Ascending Colon: Normal Transverse Colon: Normal Descending Colon: Normal Sigmoid Colon: A 7-8 mm diminutive appearing polyp - removed with a cold snare. A 10 mm sessile polyp - removed with a hot snare. Mild diverticulosis Rectum: A 7-8 mm sessile polyp - removed with a cold snare. Some bleeding noted from polypectomy site - controlled with cautery using the snare tip Ano-rectum: Small internal hemorrhoids Colon preparation: Excellent, after some irrigation. [place] Bowel Preparation Scale Right colon; 3 Transverse colon: 3 Left colon; 3 (0 = Unprepared colon segment with mucosa not seen due to solid stool that cannot be cleared. 1 = Portion of mucosa of the colon segment seen, but other areas of the colon segment not well seen due to staining, residual stool and/or opaque liquid. 2 = Minor amount of residual staining, small fragments of stool and/or opaque liquid, but mucosa of colon segment seen well. 3 = Entire mucosa of colon segment seen well with no residual staining, small fragments of stool or opaque liquid) Impression and Post Procedure Diagnosis: Colonoscopy Findings: Two small and one medium sized polyps were removed Mild diverticulosis seen in the sigmoid colon Small hemorrhoids on retroflexed exam. Plan: I will send a letter with biopsy results. Repeat Colonoscopy in 3-5 years if polyps are adenomatous and 10 year if polyps are hyperplastic. Above findings were reviewed with the patient and relevant handouts were given and the discharge area. BIOPSIES SHOWED: A. Colon, sigmoid, polypectomy x2: Hyperplastic polyp (2). B. Rectum, polypectomy: Hyperplastic polyp
[2023-11-13 10:04] VITALS: BP 139/101; PULSE 101; RESP 16; TEMP 36.6; O2SAT 98
[2023-11-13 10:19] VITALS: BP 143/100; PULSE 98; RESP 16; O2SAT 98
[2023-11-13 10:33] VITALS: BP 144/110; PULSE 98; RESP 18; TEMP 36.2; O2SAT 97
== END 2023-11-13 11:02 | disposition home or self-care (01) ==
PROVIDERS: PCP Internal Medicine; Visit Provider Internal Medicine Gastroenterology
PROC: 0DJD8ZZ Inspection of Lower Intestinal Tract, Via Natural or Artificial Opening Endoscopic (ICD-10-PCS; CPT 45378; principal; 2023-11-13 09:10)
DX: Z12.11 Encounter for screening for malignant neoplasm of colon (principal); K63.5 Polyp of colon; K62.1 Rectal polyp; K57.30 Diverticulosis of large intestine without perforation or abscess without bleeding; K64.8 Other hemorrhoids; I10 Essential (primary) hypertension; J30.9 Allergic rhinitis, unspecified; G43.909 Migraine, unspecified, not intractable, without status migrainosus; Z79.899 Other long term (current) drug therapy; Z88.0 Allergy status to penicillin; Z88.1 Allergy status to other antibiotic agents; Z91.041 Radiographic dye allergy status; Z96.22 Myringotomy tube(s) status; Z87.891 Personal history of nicotine dependence
CPT/HCPCS: 45385; 88305; J2704; J3010

== ENCOUNTER → 2023-11-13 07:58 | Outpatient (BNV) | payer BC, SELFPAY | PROVIDERS: PCP Internal Medicine; Visit Provider Internal Medicine Gastroenterology | DX: Z12.11 Encounter for screening for malignant neoplasm of colon (principal); K63.5 Polyp of colon; K62.1 Rectal polyp; K57.30 Diverticulosis of large intestine without perforation or abscess without bleeding | CPT/HCPCS: 45385 ==

== ENCOUNTER 2023-11-27 08:53 | Outpatient (AMB) | payer SELFPAY ==
--- NOTE | 2023-11-27 08:55 | A.OFFPC_ITS ---
Vital Signs 11/27/23 08:56 Height 5 ft 10 in Weight 249 lb 6 oz BMI 35.8 BP 134/82 Blood Pressure Location Lt brachial Position Sitting Pulse 104 H Pulse Source Pulse Oximeter Pulse Oximetry (%) 96 Oxygen Delivery Method Room Air Intake Visit Reasons: pe Intake Note: Patient is here today for a physical. 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 Home Care Physical Therapist: Not Required per policy Accompanied by: Self / Same As Patient Allergies Penicillins Allergy (Severe, Verified 11/27/23 09:12) Anaphylaxis amoxicillin [AMOXICILLIN] Allergy (Mild, Verified 11/27/23 09:12) RASH Iodinated Contrast Media [IV CONTRAST] Allergy (Unknown, Verified 11/27/23 09:12) UNKNOWN Medication List - Last Reconciled 11/27/23 by Anibal Santana MD fluticasone propionate 50 mcg/actuation 2 sprays intranasal DAILY PRN 30 days lisinopril 2.5 mg PO DAILY 30 days loratadine 10 mg PO DAILY PRN triamcinolone acetonide 0.5% 1 appl topical BID PRN Tobacco use date assessed: 11/27/23 Dental Screening Dental Screen Date: 09/12/23 HPI pe HPI Details Patient comes in today for his annual physical examination States that he feels okay Relates that he got promoted at work and is relocating to the [place], [place] area to take on a new position and is leaving this Sunday He denies any headaches or dizziness Denies any chest pains, no SOB No nausea/vomiting, no abdominal pain No change in bowel habits noted He denies any acute urinary symptoms He had his screening colonoscopy done a couple of weeks ago on 11/13/[address] Lagos and had a couple of polyps removed from his colon and one from his rectum - all of the polyps came back as hyperplastic on pathology so his next colonoscopy will be in 10 years He was not able to get his labs done yet and states that he has not been contacted to schedule the bladder ultrasound that we ordered for him a couple of months ago [facility] Medical History Essential hypertension Vitamin D deficiency Allergic rhinitis Migraine Surgical History (Updated 11/27/23 @ 09:16 by Anibal Santana MD) History of colonoscopy S/p bilateral myringotomy with tube placement Family History Maternal Grandmother Diabetes Mother Hypertension Social History Household Members Other:: fiancee Housing: House Alcohol intake: current Alcohol intake frequency: holidays/special occasions only Patient Tobacco Use Status: Former Tobacco user e-Cigarette/Vaping Use: Never Used Second Hand Smoke Exposure: Yes service: No Current occupational status: employed Current occupational exposures/hazards: No Cognitive needs: No Hearing needs: No Vision needs: No Questionnaire Thrive Questionnaire Date Thrive assessed: 09/12/23 HUMBLE-7 AMB Questionnaire HUMBLE-7 Date HUMBLE - 7 assessed: 11/27/23 Feeling nervous, anxious, or on edge: 1 = Several days Not being able to stop or control worryin = Not at all Worrying too much about different things: 0 = Not at all Trouble relaxin = Not at all Being so restless that it is hard to sit still: 0 = Not at all Becoming easily annoyed or irritable: 0 = Not at all Feeling afraid as if something awful might happen: 0 = Not at all Total HUMBLE-7 score (0-4 normal; 5-9 mild; 10-14 moderate; 15-21 severe): 1 Source: Developed by Drs. Alfonso Frias, Delmy Jean, Socrates Mclean and colleagues, with an educational terence from [employer]. Review of Systems Const Denies chills, Denies fatigue, Denies fever(s), Denies headache(s), Denies malaise and Denies weakness Eyes Denies blurry vision, Denies change in vision, Denies irritation and Denies itchy eyes ENT Denies dysphagia, Denies dizziness, Denies otalgia, Denies headache(s), Denies nasal congestion, Denies neck pain, Denies odynophagia and Denies sore throat Card Denies chest pain, Denies rapid heart rate, Denies irregular heart rhythm, Denies palpitations and Denies dyspnea Resp Denies chest congestion, Denies cough, Denies dyspnea and Denies wheezing GI Denies abdominal pain, Denies bloating, Denies constipation, Denies dysphagia, Denies heartburn, Denies diarrhea, Denies nausea, Denies odynophagia and Denies vomiting Denies hematuria, Denies difficulty urinating, Denies dysuria, Denies urinary frequency and Denies urinary urgency Musc Denies back pain, Denies arthralgias, Denies joint swelling, Denies muscle weakness and Denies neck pain Skin/Breast Denies change in pigmentation, Denies lesions, Denies rash and Denies unusual bruising Neuro Denies dizziness, Denies headache(s), Denies paresthesias and Denies weakness Endo Denies fatigue and Denies palpitations Aller/Immun Denies itchy eyes and Denies wheezing Physical exam (Primary Care) Vital Signs: Last Vital Signs Pulse 104 H 11/27/23 08:56 BP 134/82 11/27/23 08:56 Pulse Ox 96 11/27/23 08:56 Oxygen Delivery Method Room Air 11/27/23 08:56 BMI result Body Mass Index 35.8 Tobacco/Smoking Status: Tobacco use Status Tobacco use date assessed 11/27/23 11/27/23 09:02 Patient Tobacco Use Status Former Tobacco user 11/27/23 09:02 e-Cigarette/Vaping Use Never Used 11/27/23 09:02 Thrive Assessment: Date of Thrive Assessment Date Thrive assessed 09/12/23 11/27/23 09:02 Const General: no acute distress, alert and awake Orientation/consciousness: patient oriented x3 HENMT Head: Yes normocephalic and Yes atraumatic Ears: external ears normal, TM's normal bilaterally and EAC's normal General nose exam: No nasal discharge present Face and sinus: Yes normal facial exam and Yes sinuses nontender Teeth and gingiva: dentition normal Throat: Yes posterior oropharynx normal and Yes tonsils normal (no TP congestion) Eyes Eyelids: Yes eyelids normal Conjunctivae: conjunctivae normal Pupils: Equal, round and reactive pupils present EOM: EOMs intact bilaterally Neck Neck: Yes no lymphadenopathy and Yes supple Thyroid: Thyroid normal Resp Auscultation: clear to auscultation bilaterally, no rales and no wheezes Cardio Rate: regular rate Rhythm: regular rhythm Heart sounds: no murmurs GI Palpation (GI): Soft to palpation, nontender and No hepatosplenomegaly present Auscultation: normal bowel sounds General: Yes no CVA tenderness Back/Spine/Pelvis Back: no CVA tenderness Thoracic/Lumbar Spine: thoracic and lumbar spine normal to inspection Skin Lesions: no lesions Rashes: no rashes Neuro General: patient oriented x3, moves all extremities, no focal motor deficits and CN's II-XI intact bilaterally Cranial nerves: Yes Equal, round and reactive pupils present Cognition (Neuro): normal cognition Gait exam (Neuro): Normal gait present Extrem General: Yes no clubbing, cyanosis or edema Assessment and Plan Assessment & Plan (1) Annual physical exam: Code(s): Z00.00 - Encounter for general adult medical examination without abnormal findings Plan: Check labs - will update his previously ordered labs and have him just use these for his lab draw Patient states that he can go over to the hospital and get these done now after he leaves the office in the next few minutes He had his screening colonoscopy done a couple of weeks ago on 11/13/2023 - (+) hyperplastic polyps; otherwise normal colonoscopy so his next recommended colonoscopy will be in 10 years (2033) (2) Essential hypertension: Code(s): I10 - Essential (primary) hypertension Plan: Reinforced low sodium diet - goal is systolic BP of 120 mm or less His BP appears to be much better controlled since he was started on Lisinopril a couple of months ago Continue Lisinopril 2.5 mg QD - Rx refilled for a 90 days' supply Patient is again reminded to monitor his blood pressure regularly (3) Migraine: Code(s): G43.909 - Migraine, unspecified, not intractable, without status migrainosus Qualifiers: Migraine type: unspecified Status migrainosus presence: without status migrainosus Intractability: not intractable Qualified Code(s): G43.909 - Migraine, unspecified, not intractable, without status migrainosus Plan: Reinforced avoidance of migraine triggers Patient states that he just takes some OTC meds as needed when his headaches occur, more often in the spring and fall as allergies tend to trigger his headaches (4) Pruritic rash: Code(s): L28.2 - Other prurigo Plan: Suspect psoriasis as the cause of his recurrent scaling rash He was referred to [facility] previously but he has not yet been seen As he is now relocating to [place], advised him that he can pursue dermatology referral again when he starts seeing his new PCP down there Continue Triamcinolone 0.5% cream BID PRN in the meantime (5) Hematuria: Code(s): R31.9 - Hematuria, unspecified Qualifiers: Hematuria type: asymptomatic microscopic Qualified Code(s): R31.21 - Asymptomatic microscopic hematuria Plan: He is reminded that his previous labs done back in December 2022 and his renal US done in May 2023 all came out with normal / unrevealing results Abdominal and pelvic CT done back in 2019 revealed only the presence of a tiny exophytic cyst over the right kidney We sent him for a bladder US a couple of months ago but states that he has not been contacted to get this scheduled yet As he is now relocating to [place] in a few days, we will go ahead and cancel this for now Advised him that if his labs done today show any RBCs or blood inappropriately in his urine, we will reach out to him and have him try to pursue this with a product safety lead in [place] (6) Hearing impairment: Code(s): H91.90 - Unspecified hearing loss, unspecified ear Qualifiers: Hearing loss type: unspecified Laterality: bilateral Qualified Code(s): H91.93 - Unspecified hearing loss, bilateral Plan: He appeared to have a chronic effusion behind both of his tympanic membranes on exam at his last visit - unclear as to etiology but I suspected that his allergies may be contributing to this Have advised him to continue on OTC Loratadine 10 mg QD and we started him additionally on Fluticasone 50 mcg nasal spray 2 sprays into each nostril QD PRN and referred him to ENT for further evaluation and management but patient has not been seen by ENT yet Feels that his ear symptoms have improved a lot lately so he can hold off on this for now as he is moving (7) Allergic rhinitis: Code(s): J30.9 - Allergic rhinitis, unspecified Qualifiers: Allergic rhinitis trigger: unspecified Allergic rhinitis seasonality: unspecified Qualified Code(s): J30.9 - Allergic rhinitis, unspecified Plan: Continue OTC Loratadine 10 mg QD PRN He will also be started on Fluticasone 50 mcg nasal spray 2 sprays into each nostril QD [place] (8) Obesity (BMI 30-39.9): Code(s): E66.9 - Obesity, unspecified Plan: Reinforced diet/exercise as tolerated/lose weight Plan Follow up PRN - he is moving and relocating to [place] later this week (Sunday) and is advised to look for a PCP there as soon as he gets settled; he can then request for his records to be transferred / sent there as soon as possible Medications: Changed From lisinopril 2.5 mg PO DAILY 30 days 30 tabs 2RF To lisinopril 2.5 mg PO DAILY 90 days 90 tabs 1RF Coding Level of Care Code Est Pt Prev Care 40-64y([id number]) Diagnoses Annual physical exam Z00.00 Essential hypertension I10 Migraine without status migrainosus, not intractable, unspecified migraine type G43.909 Migraine type: unspecified Status migrainosus presence: without status migrainosus Intractability: not intractable Pruritic rash L28.2 Asymptomatic microscopic hematuria R31.21 Hematuria type: asymptomatic microscopic Bilateral hearing loss, unspecified hearing loss type H91.93 Hearing loss type: unspecified Laterality: bilateral Allergic rhinitis, unspecified seasonality, unspecified trigger J30.9 Allergic rhinitis trigger: unspecified Allergic rhinitis seasonality: unspecified Obesity (BMI 30-39.9) E66.9
[2023-11-27 08:56] VITALS: BP 134/82; PULSE 104; O2SAT 96; BMI 35.8
== END 2023-11-27 09:31 | disposition home or self-care (01) ==
PROVIDERS: PCP Internal Medicine; Visit Provider Internal Medicine
DX: Z00.00 Encounter for general adult medical examination without abnormal findings (principal); I10 Essential (primary) hypertension; G43.909 Migraine, unspecified, not intractable, without status migrainosus; L28.2 Other prurigo; R31.21 Asymptomatic microscopic hematuria; H91.93 Unspecified hearing loss, bilateral; J30.9 Allergic rhinitis, unspecified; E66.9 Obesity, unspecified
CPT/HCPCS: 99396

== ENCOUNTER 2023-11-27 09:36 | Outpatient (REF) | payer SELFPAY ==
[2023-11-27 09:49] LABS: MANUAL DIFF FLAG NO
[2023-11-27 10:06] LABS: Urine Cytology See Pathology rpt
[2023-11-27 10:14] LABS: Appearance Urine Clear; Color Urine Yellow; Glucose Urine UA Negative (Negative); Leukocyte Esterase Urine Negative (Negative); Nitrite Urine Negative (Negative); UMIC TRIGGER UACC YES; Urine Blood Moderate (2+) (Negative); Urine Ketones Negative (Negative); Urine Protein Trace mg/dL (Neg-Trace)
[2023-11-27 10:14] LABS: Basophils Absolute Auto 0.1 X10*3/uL (0.0-0.2); Basophils Percent Auto 0.9 % (0-2); Eosinophils Absolute Auto 0.2 X10*3/uL (0.0-0.4); Eosinophils Percent Auto 2.1 % (0-4); Hematocrit 42.4 % (42.0-52.0); Hemoglobin 14.1 g/dl (14.0-18.0); Imm Gran Abs Auto 0.02 X10*3/uL (0.00-0.03); Imm Gran Pct Auto 0.3 % (0.0-0.4); Lymphocytes Absolute Auto 1.7 X10*3/uL (1.2-4.9); Lymphocytes Percent Auto 22.3 % (20-40); Mean Corpuscular HGB Conc 33.3 g/dl (31.0-36.0); Mean Corpuscular Hemoglobin 27.6 pg (27.0-33.0); Mean Corpuscular Volume 83.1 fL (80.0-98.0); Mean Platelet Volume 10.6 fL (9.4-12.4); Monocytes Absolute Auto 0.4 X10*3/uL (0.1-1.2); Monocytes Percent Auto 5.2 % (2-11); Neutrophils Absolute Auto 5.4 x10*3/uL (2.0-8.3); Neutrophils Percent Auto 69.2 % (45-73); Platelet Count 272 X10*3/uL (160-400); Red Cell Distribution Width 14.1 % (11.0-16.0); White Blood Count 7.7 X10*3/uL (4.8-10.8)
[2023-11-27 10:20] LABS: Bacteria Urine None Seen (None Seen); Hyaline Casts Urine 0-2 /LPF (0-2); Squamous Epithelial Cell Urine 0-2 /HPF (0-2); WBC Urine 0-5 /HPF (0-5)
[2023-11-27 11:31] LABS: Alanine Aminotransferase 15 U/L (0-40); Albumin Level 3.9 g/dL (3.5-5.0); Alkaline Phosphatase 63 U/L (39-117); Anion Gap 13 (12-20); Aspartate Amino Transferase 16 U/L (5-37); Bilirubin Total 0.7 mg/dL (0.0-1.0); Blood Urea Nitrogen 14 mg/dL (9-16); Calcium 9.2 mg/dL (8.4-10.2); Carbon Dioxide 22 mmol/L (22-29); Chloride 111 mmol/L (96-108); Cholesterol 166 mg/dL (<200); Estimated Glomerular Filt Rate > 60; Glucose Fasting 98 mg/dL (60-99); HDL Cholesterol 29 mg/dL (>40); LDL Cholesterol Calculated 109 mg/dL (<100); Potassium 3.9 mmol/L (3.3-5.1); Sodium 142 mmol/L (135-145); Total Protein 7.2 g/dL (6.5-8.0); Triglycerides 143 mg/dL (<150)
[2023-11-27 11:48] LABS: Prostate Specific Antigen 1.45 ng/mL (<0.05-4.0)
[2023-11-27 11:51] LABS: TSH reflex Free T4 1.24 uIU/mL (0.32-4.0); Vitamin D 25-OH Total 25.3 ng/mL (>30)
== END 2023-11-27 09:37 | disposition home or self-care (01) ==
LOC: HO.LAB 09:36
PROVIDERS: PCP Internal Medicine; Visit Provider Internal Medicine
DX: Z00.00 Encounter for general adult medical examination without abnormal findings (principal); E78.00 Pure hypercholesterolemia, unspecified; N40.0 Benign prostatic hyperplasia without lower urinary tract symptoms; E55.9 Vitamin D deficiency, unspecified; D64.9 Anemia, unspecified; R31.1 Benign essential microscopic hematuria; Z12.5 Encounter for screening for malignant neoplasm of prostate
CPT/HCPCS: 36415; 80053; 80061; 81001; 82306; 84153; 84443; 85025; 88112